=== PATIENT | male | born 1945 | race Caucasian/White ===

== ENCOUNTER 2018-03-22 11:45 | Day surgery (SDC) | payer OTHER ==
[~2018-03-22] VITALS: Ht 180.3 cm; Wt 61.7 kg
[~2018-03-22 11:45] MED LIST: PHENYLEPHRINE 10 MG/ML ONE
[2018-03-22] MEDS ORDERED: LACTATED RINGERS 1,000 ML IV SCH (12:55)
[2018-03-22] MEDS ORDERED: LIDOCAINE-MPF 1%, 2ML INFIL ONE (13:00)
[2018-03-22] MEDS ORDERED: LIDOCAINE-MPF 1%, 2ML ONE (13:04)
[2018-03-22] MEDS ORDERED: OMEP40CA6 PO (13:09)
[2018-03-22] MEDS ORDERED: METF500T4 PO (13:09)
[2018-03-22] MEDS ORDERED: GLIP5TAB10 PO (13:09)
[2018-03-22] MEDS ORDERED: ATOR40TA78 PO (13:09)
[2018-03-22] MEDS ORDERED: ASPI-496 PO (13:09)
[2018-03-22] MEDS ORDERED: ENAL10TA PO (13:09)
[2018-03-22 13:26] VITALS: BP 107/71
[2018-03-22 13:47] LABS: ALANINE AMINOTRANSFERASE 209 U/L (12-78); ANION GAP 8 mmol/L (5-15); CALCIUM 9.4 mg/dL (8.5-10.1); CHLORIDE 103 mmol/L (98-107)
[2018-03-22 13:50] LABS: ALKALINE PHOSPHATASE 928 U/L (45-117)
[2018-03-22 14:01] LABS: CREATININE 0.74 mg/dL (0.7-1.3)
[2018-03-22 14:20] LABS: BILIRUBIN,TOTAL 22.3 mg/dL (0.2-1.0)
[2018-03-22] MEDS ORDERED: LIDOCAINE-MPF 2% ,5ML ONE ×2 (15:15→15:41)
[2018-03-22] MEDS ORDERED: FENTANYL PF 100 MCG/2ML ONE (15:15)
[2018-03-22] MEDS ORDERED: ALBUTEROL SULFATE 2.5 MG/3 ML NPPB PRN (15:30)
[2018-03-22] MEDS ORDERED: PROMETHAZINE 25 MG/ML, 1ML IV PRN (15:30)
[2018-03-22] MEDS ORDERED: ALBUTEROL/IPRATROPIUM 2.5MG/0.5MG, 3 ML NPPB PRN (15:30)
[2018-03-22] MEDS ORDERED: PROMETHAZINE 12.5 MG SUPP PR PRN (15:30)
[2018-03-22] MEDS ORDERED: morphine SULFATE 10 MG/ML, 1ML IV PRN (15:30)
[2018-03-22] MEDS ORDERED: MIDAZOLAM 1 MG/ML, 2ML IV PRN (15:30)
[2018-03-22] MEDS ORDERED: MEPERIDINE/PF 25MG/0.5ML IVPush PRN (15:30)
[2018-03-22] MEDS ORDERED: FENTANYL PF 100 MCG/2ML IV PRN (15:30)
[2018-03-22] MEDS ORDERED: LABETALOL 5MG/ML, 20ML IV PRN (15:30)
[2018-03-22] MEDS ORDERED: ONDANSETRON 2MG/ML, 2ML IVPush PRN (15:30)
[2018-03-22] MEDS ORDERED: hydrALAzine 20 MG/ML, 1ML IV PRN (15:30)
[2018-03-22] MEDS ORDERED: OXYcodone 5 MG/5 ML ORAL.SOL UDC PO PRN (15:30)
[2018-03-22] MEDS ORDERED: ACETAMINOPHEN 325 MG TABLET PO PRN (15:30)
[2018-03-22] MEDS ORDERED: SUCCINYLCHOLINE 20 MG/ML, 10ML ONE (15:41)
[2018-03-22] MEDS ORDERED: PROPOFOL 10 MG/ML, 20ML ONE (15:41)
[2018-03-22] MEDS ORDERED: ONDANSETRON 2MG/ML, 2ML ONE (15:41)
[2018-03-22] MEDS ORDERED: AMPICILLIN/SULBACTAM 3 GM in SODIUM CHLORIDE 0.9% 100 ML IV ONE (16:00)
[2018-03-22] MEDS ORDERED: OMNIPAQUE 350 MG/ML, 50 ML BOTTLE ONE (16:38)
== END 2018-03-22 18:00 ==
LOC: OR 11:45 → OUT 18:00
PROVIDERS: ATTEND Internal Medicine Geriatric Medicine
DX: C25.0 Malignant neoplasm of head of pancreas (principal); K29.50 Unspecified chronic gastritis without bleeding; K83.8 Other specified diseases of biliary tract; E11.9 Type 2 diabetes mellitus without complications; E78.5 Hyperlipidemia, unspecified; F17.210 Nicotine dependence, cigarettes, uncomplicated; I10 Essential (primary) hypertension; Z98.890 Other specified postprocedural states; Z90.49 Acquired absence of other specified parts of digestive tract; Z95.5 Presence of coronary angioplasty implant and graft
CPT/HCPCS: 36415; 43239; 43242; 43260; 74328; 80053; 82962; 88172; 88173; 88177; 88305; 88307; 93005; J0330; J2370; J2405; J2704; J3010; J3490; J7120; Q9967